=== PATIENT | male | born 1980 | race Two or more races ===

== ENCOUNTER 2020-10-17 18:46 | Emergency (ER) | payer MEDICAID ==
[~2020-10-17] VITALS: Ht 172.7 cm; Wt 111.1 kg
[~2020-10-17 18:46] MED LIST: LORA1TAB PO
--- NOTE | 2020-10-17 19:10 | NUR ---
PT WAS EVALUATED BY DR MENDEZ. PT WAS D/C'd TO HOME. D/C INSTRUCTIONS GIVEN TO THE PT BY DR MENDEZ.
[2020-10-17] MEDS ORDERED: LORA-259 PO (19:16)
[2020-10-17 19:23] VITALS: BP 137/72
== END 2020-10-17 19:23 | disposition home or self-care (01) ==
LOC: ER 18:48
DX: F41.9 Anxiety disorder, unspecified (principal); Z88.6 Allergy status to analgesic agent; K58.9 Irritable bowel syndrome, unspecified
CPT/HCPCS: A4663

== ENCOUNTER 2021-04-28 11:52 | Emergency (ER) | payer MEDICAID ==
[~2021-04-28] VITALS: Ht 172.7 cm; Wt 111.6 kg
[~2021-04-28 11:52] MED LIST changes: +LORA-259 PO
--- NOTE | 2021-04-28 12:09 | NUR ---
[email or web address], medical screening exam in progress
[2021-04-28] MEDS ORDERED: SULF1TAB48 PO (12:14)
[2021-04-28] MEDS ORDERED: DIPH25CA83 PO (12:19)
--- NOTE | 2021-04-28 12:24 | NUR ---
Patient discharged to home in stable condition with brisk steady gait. Written and verbal after care instructions given to patient. Patient verbalized understanding and compliance of instructions. 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
== END 2021-04-28 12:24 | disposition home or self-care (01) ==
LOC: ER 11:52
DX: L03.113 Cellulitis of right upper limb (principal); T63.481A Toxic effect of venom of other arthropod, accidental (unintentional), initial encounter; Y92.89 Other specified places as the place of occurrence of the external cause; Z88.6 Allergy status to analgesic agent; K58.9 Irritable bowel syndrome, unspecified; F41.9 Anxiety disorder, unspecified
CPT/HCPCS: A4663

== ENCOUNTER 2022-06-13 19:48 | Emergency (ER) | payer MEDICAID ==
[~2022-06-13] VITALS: Ht 172.7 cm; Wt 120.3 kg
[~2022-06-13 19:48] MED LIST changes: +DIPH25CA83 PO; +SULF1TAB48 PO
[2022-06-13 22:51] VITALS: BP 130/70
--- NOTE | 2022-06-13 22:52 | NUR ---
Patient discharged to home in stable condition. Written and verbal after care instructions given. Patient verbalizes understanding of instructions. Stressed follow up or return to ER for worsening s/s.
== END 2022-06-13 22:52 | disposition home or self-care (01) ==
LOC: ER 19:57
DX: Z71.1 Person with feared health complaint in whom no diagnosis is made (principal); F41.9 Anxiety disorder, unspecified; K58.9 Irritable bowel syndrome, unspecified; Z88.8 Allergy status to other drugs, medicaments and biological substances
CPT/HCPCS: A4663

== ENCOUNTER 2023-04-23 13:06 | Emergency (ER) | payer MEDICAID ==
[~2023-04-23] VITALS: Ht 172.7 cm; Wt 120.2 kg
[2023-04-23 13:36] VITALS: O2SAT 98
[2023-04-23 14:32] LABS: BASOPHILS % (AUTO) 0.7 % (0.0-2.0); EOSINOPHILS % (AUTO) 0.6 % (0.0-7.0); HEMATOCRIT 48.2 % (36.7-47.1); HEMOGLOBIN 16.3 g/dL (12.5-16.3); LYMPHOCYTES # (AUTO) 1.2 K/uL (0.8-4.8); MEAN CORPUSCULAR HEMOGLOBIN 29.2 uug (23.8-33.4); MEAN CORPUSCULAR HGB CONC 34 g/dL (32.5-36.3); MEAN CORPUSCULAR VOLUME 86.1 fL (73.0-96.2); MONOCYTES # (AUTO) 0.3 K/uL (0.1-1.30); NEUTROPHILS # (AUTO) 4.6 K/uL (1.8-8.9); NEUTROPHILS % (AUTO) 73.7 % (38.5-71.5); PLATELET COUNT (AUTO) 186 K/uL (152-348); WHITE BLOOD COUNT (AUTO) 6.2 K/uL (3.6-10.2)
[2023-04-23 14:34] LABS: DIFFERENTIAL COMMENT 1
[2023-04-23 14:47] LABS: CALCIUM 8.8 mg/dL (8.5-10.1); CARBON DIOXIDE 27 mmol/L (21-32); CHLORIDE 97 mmol/L (98-107); CREATININE 0.8 mg/dL (0.6-1.3); GLUCOSE 263 mg/dL (74-106); POTASSIUM 3.6 mmol/L (3.5-5.1); SODIUM SERUM 135 mmol/L (136-145); UREA NITROGEN, BLOOD 9 mg/dL (7-18)
[2023-04-23 14:55] LABS: ALANINE AMINOTRANSFERASE 42 U/L (16-63); ALBUMIN 4.2 g/dL (3.4-5.0); ALKALINE PHOSPHATASE 105 U/L (50-136); ASPARTATE AMINOTRANSFERASE 17 U/L (15-37); BILIRUBIN,DIRECT 0.1 mg/dL (0.0-0.2); BILIRUBIN,TOTAL 0.5 mg/dL (0.2-1.0); TOTAL PROTEIN, SERUM 8.7 g/dL (6.4-8.2)
[2023-04-23 15:10] LABS: LIPASE 39 U/L (73-393)
[2023-04-23] MEDS ORDERED: SUCR1ORA4 PO ×2 (15:53→16:08)
[2023-04-23] MEDS ORDERED: FAMO40TA7 PO ×2 (15:53→16:08)
[2023-04-23] MEDS ORDERED: METF-440 PO ×2 (15:53→16:08)
== END 2023-04-23 16:24 | disposition home or self-care (01) ==
LOC: ER 13:09
DX: R07.89 Other chest pain (principal); E11.65 Type 2 diabetes mellitus with hyperglycemia; I10 Essential (primary) hypertension; Z88.8 Allergy status to other drugs, medicaments and biological substances; Z79.899 Other long term (current) drug therapy
CPT/HCPCS: 36415; 71045; 83690; 84484; 85025; 93005; A4606; A4663

== ENCOUNTER 2023-09-10 18:22 | Emergency (ER) | payer MEDICAID ==
[~2023-09-10] VITALS: Ht 172.7 cm; Wt 114.8 kg
[~2023-09-10 18:22] MED LIST changes: +FAMO40TA7 PO; +METF-440 PO; +SUCR1ORA4 PO
[2023-09-10] MEDS ORDERED: OMEP40CA21 PO (18:44)
[2023-09-10 19:34] LABS: BASOPHILS # (AUTO) 0.1 K/UL (0.0-0.2); BASOPHILS % (AUTO) 0.7 % (0.0-2.0); EOSINOPHILS # (AUTO) 0.1 K/uL (0.0-0.7); EOSINOPHILS % (AUTO) 1.9 % (0.0-7.0); HEMATOCRIT 40.3 % (36.7-47.1); HEMOGLOBIN 13.7 g/dL (12.5-16.3); LYMPHOCYTES # (AUTO) 1.4 K/uL (0.8-4.8); LYMPHOCYTES % (AUTO) 19.3 % (20.5-51.5); MEAN CORPUSCULAR HEMOGLOBIN 30.6 uug (23.8-33.4); MEAN CORPUSCULAR HGB CONC 34 g/dL (32.5-36.3); MEAN CORPUSCULAR VOLUME 90.1 fL (73.0-96.2); MONOCYTES # (AUTO) 0.4 K/uL (0.1-1.30); MONOCYTES % (AUTO) 5.3 % (0.0-11.0); NEUTROPHILS # (AUTO) 5.4 K/uL (1.8-8.9); NEUTROPHILS % (AUTO) 72.8 % (38.5-71.5); PLATELET COUNT (AUTO) 195 K/uL (152-348); RED BLOOD CELL COUNT(AUTO) 4.48 MIL/uL (4.06-5.63); RED CELL DISTRIBUTION WIDTH 13.4 % (12.1-16.2); WHITE BLOOD COUNT (AUTO) 7.5 K/uL (3.6-10.2)
[2023-09-10 19:56] LABS: ALANINE AMINOTRANSFERASE 54 U/L (16-63); ALBUMIN 3.7 g/dL (3.4-5.0); ALKALINE PHOSPHATASE 68 U/L (50-136); ASPARTATE AMINOTRANSFERASE 18 U/L (15-37); BILIRUBIN,DIRECT 0.2 mg/dL (0.0-0.2); BILIRUBIN,TOTAL 0.3 mg/dL (0.2-1.0); CALCIUM 9.4 mg/dL (8.5-10.1); CARBON DIOXIDE 28 mmol/L (21-32); CHLORIDE 99 mmol/L (98-107); CREATININE 0.8 mg/dL (0.6-1.3); GLUCOSE 153 mg/dL (74-106); LIPASE 21 U/L (16-77); SODIUM SERUM 139 mmol/L (136-145); TOTAL PROTEIN, SERUM 7.9 g/dL (6.4-8.2); UREA NITROGEN, BLOOD 7 mg/dL (7-18)
[2023-09-10 21:11] VITALS: BP 169/94; O2SAT 98
== END 2023-09-10 21:12 | disposition home or self-care (01) ==
LOC: ER 18:24
DX: R07.89 Other chest pain (principal); K29.70 Gastritis, unspecified, without bleeding; F41.9 Anxiety disorder, unspecified; K21.9 Gastro-esophageal reflux disease without esophagitis; E11.9 Type 2 diabetes mellitus without complications; Z88.8 Allergy status to other drugs, medicaments and biological substances; Z79.899 Other long term (current) drug therapy
CPT/HCPCS: 36415; 71045; 83690; 84484; 85025; 93005; A4606; A4663